=== PATIENT | female | born 1995 | race Caucasian/White ===

== ENCOUNTER 2017-02-27 21:13 | Emergency (ER) | payer OTHER, BC | END 2017-02-27 22:28 | disposition home or self-care (01) | LOC: M ED 21:13 | DX: J31.0 Chronic rhinitis (principal); H61.899 Other specified disorders of external ear, unspecified ear; Z79.3 Long term (current) use of hormonal contraceptives; Z79.899 Other long term (current) drug therapy; Z88.1 Allergy status to other antibiotic agents; Z88.2 Allergy status to sulfonamides | CPT/HCPCS: 99283 ==

== ENCOUNTER → 2018-09-05 | Outpatient (CLI) | payer OTHER ==
[~2018-09-05] MED LIST: AUGM875T28 PO; CLAR5TAB7 PO; ESCI10TA2; MEDR1VL IM
[2018-09-05 10:28] LABS: FREE T4 1.39 NG/DL (0.76-1.46); THYROID STIMULATING HORMONE 2.28 uIU/ML (0.358-3.740)
[2018-09-05 10:29] LABS: PROLACTIN 12.3 NG/ML
== END ==
LOC: M LAB 09:31
PROVIDERS: ATTEND Obstetrics & Gynecology
DX: N91.4 Secondary oligomenorrhea (principal)

== ENCOUNTER → 2019-01-13 | Outpatient (REF) | LOC: M LAB LCGH 12:16 | PROVIDERS: ATTEND Physician Assistant | DX: D22.9 Melanocytic nevi, unspecified (principal) ==

== ENCOUNTER → 2021-03-15 | Outpatient (CLI) | payer OTHER ==
[~2021-03-15] MED LIST changes: +ESCI10TA16; -ESCI10TA2
[2021-03-15 17:21] LABS: HEMATOCRIT 38.8 % (36.0-47.0); HEMOGLOBIN 13.2 g/dl (12.0-15.5); MEAN CORPUSCULAR HEMOGLOBIN 31.4 pg (27.0-33.0); MEAN CORPUSCULAR VOLUME 92.2 fl (80.0-96.0); PLATELET COUNT, AUTOMATED 344 10^3/uL (150-450); RED BLOOD COUNT 4.21 10^6/uL (4.00-5.40); WHITE BLOOD COUNT 9.5 10^3/uL (4.0-10.0)
[2021-03-15 17:42] LABS: ALT/SGPT 21 U/L (12-78); BILIRUBIN,TOTAL 0.3 MG/DL (0.2-1.0); CREATININE FOR GFR 0.55 MG/DL (0.55-1.30); GLOMERULAR FILTRATION RATE > 60.0 (>60); LDH LACTATE DEHYDROGENASE 142 U/L (84-246)
[2021-03-15 17:44] LABS: TOTAL PROTEIN,RANDOM URINE 13.4 MG/DL (0.0-12.0)
[2021-03-15 18:25] LABS: HEPATITIS C VIRUS ABY INDEX < 0.0 INDEX (<0.8)
[2021-03-15 18:26] LABS: HIV 1&2 SCREEN CENTAUR NEGATIVE (NEGATIVE)
[2021-03-15 20:12] LABS: GC DNA AMPLIFICATION NEGATIVE (NEGATIVE)
== END ==
LOC: M PLALAB 13:52
PROVIDERS: ATTEND Advanced Practice Midwife
DX: O26.851 Spotting complicating pregnancy, first trimester (principal)

== ENCOUNTER → 2021-05-26 | Outpatient (CLI) | payer OTHER | LOC: M WHC 14:30 | PROVIDERS: ATTEND Obstetrics & Gynecology | DX: Z36.89 Encounter for other specified antenatal screening (principal); Z3A.20 20 weeks gestation of pregnancy ==

== ENCOUNTER 2021-07-30 09:57 | Outpatient (CLI) | payer OTHER ==
[~2021-07-30] VITALS: Ht 167.6 cm; Wt 87.5 kg
[2021-07-30 10:17] VITALS: BP 106/57
[2021-07-30] MEDS ORDERED: PRENTAB9 PO (10:20)
[2021-07-30] MEDS ORDERED: ECOT81TA5 PO (10:20)
[2021-07-30] MEDS ORDERED: HOME MED LIST COMPLETE! XX SCH (10:25)
[2021-07-30] MEDS ORDERED: ASPI81CH33 PO (10:28)
[2021-07-30] MEDS ORDERED: LACTATED RINGER'S 1000 ML IV ONE (10:45)
[2021-07-30] MEDS ORDERED: LR 1,000 ML IV SCH (11:00)
[2021-07-30 11:24] LABS: HEMATOCRIT 52.6 % (36.0-47.0); HEMOGLOBIN 18.4 g/dl (12.0-15.5); MEAN CORPUSCULAR HEMOGLOBIN 34.3 pg (27.0-33.0); MEAN CORPUSCULAR VOLUME 98.1 fl (80.0-96.0); PLATELET COUNT, AUTOMATED 125 10^3/uL (150-450); RED BLOOD COUNT 5.36 10^6/uL (4.00-5.40); WHITE BLOOD COUNT 4.7 10^3/uL (4.0-10.0)
[2021-07-30 11:28] LABS: APPEARANCE, URINE HAZY (CLEAR); BACTERIA, URINE AUTO 1+ (NEGATIVE); BILIRUBIN, URINE AUTO NEGATIVE (NEGATIVE); BLOOD, URINE BLOOD 1+ (NEGATIVE); COLOR, URINE YELLOW (YELLOW); GLUCOSE, URINE (UA) AUTO NEGATIVE (NEGATIVE); KETONE, URINE AUTO NEGATIVE (NEGATIVE); LEUKOCYTE ESTERASE, URINE AUTO 1+ (NEGATIVE); NITRITE, URINE AUTO NEGATIVE (NEGATIVE); PROTEIN, URINE AUTO NEGATIVE (NEGATIVE); RBC, URINE AUTO 0 /HPF (0-3); SPECIFIC GRAVITY URINE AUTO 1.011 (1.002-1.035); SQUAMOUS EPITHELIAL CELL UR AU 14 /HPF (0-6); UROBILINOGEN, URINE AUTO 0.2 mg/dL (0.0-2.0); WBC, URINE AUTO 4 /HPF (0-3)
[2021-07-30 12:17] LABS: HEMATOCRIT 34.2 % (36.0-47.0); MEAN CORPUSCULAR HEMOGLOBIN 34.3 pg (27.0-33.0); MEAN CORPUSCULAR HGB CONC 33.6 g/dl (32.0-36.5); MEAN CORPUSCULAR VOLUME 102.1 fl (80.0-96.0); PLATELET COUNT, AUTOMATED 219 10^3/uL (150-450); RED BLOOD COUNT 3.35 10^6/uL (4.00-5.40); WHITE BLOOD COUNT 9.7 10^3/uL (4.0-10.0)
[2021-07-30 12:19] LABS: HEMOGLOBIN 11.5 g/dl (12.0-15.5)
[2021-07-30 12:53] VITALS: BP 98/59
[2021-07-30 13:47] VITALS: BP 107/64
== END 2021-07-30 15:20 | disposition home or self-care (01) ==
LOC: M LDO 09:57
PROVIDERS: ATTEND Obstetrics & Gynecology
DX: O46.93 Antepartum hemorrhage, unspecified, third trimester (principal); Z3A.30 30 weeks gestation of pregnancy; O26.893 Other specified pregnancy related conditions, third trimester; N93.0 Postcoital and contact bleeding; Z88.2 Allergy status to sulfonamides

== ENCOUNTER → 2021-09-13 | Outpatient (CLI) | payer OTHER ==
[~2021-09-13] MED LIST changes: +ASPI81CH33 PO; +ECOT81TA5 PO; +PRENTAB9 PO
== END ==
LOC: M WHC 15:14
PROVIDERS: ATTEND Specialist
DX: Z34.83 Encounter for supervision of other normal pregnancy, third trimester (principal); Z3A.36 36 weeks gestation of pregnancy

== ENCOUNTER → 2021-09-13 | Outpatient (REF) | payer OTHER | LOC: M SFHCWAGY 16:54 | PROVIDERS: ATTEND Specialist | DX: Z36.85 Encounter for antenatal screening for Streptococcus B (principal) ==

== ENCOUNTER 2021-09-27 07:30 | Inpatient (IN) | payer OTHER ==
[~2021-09-27] VITALS: Ht 167.6 cm; Wt 96.7 kg
[2021-09-27] VITALS (9 sets, daily range): BP systolic 108–118; BP diastolic 62–73
[2021-09-27] MEDS ORDERED: LACTATED RINGER'S 1000 ML IV STA (13:53)
[2021-09-27] MEDS ORDERED: METHYLERGONOVINE MALEATE 0.2 MG/ML VIAL (J2210) IM PRN (13:55)
[2021-09-27] MEDS ORDERED: OXYTOCIN INJ 10 UNITS/ML VIAL (J2590) IM PRN (13:55)
[2021-09-27] MEDS ORDERED: TRANEXAMIC ACID INJection 1,000 MG in NS 100 ML IV PRN (13:55)
[2021-09-27] MEDS ORDERED: OXYTOCIN DRIP 30 UNITS in IV 1 EA IV PRN ×4 (13:55)
[2021-09-27] MEDS ORDERED: CARBOPROST TROMETHAMINE 250 MCG/ML AMP IM PRN (13:55)
[2021-09-27 14:26] LABS: HEMATOCRIT 38.8 % (36.0-47.0); HEMOGLOBIN 13.4 g/dl (12.0-15.5); MEAN CORPUSCULAR HEMOGLOBIN 33.5 pg (27.0-33.0); MEAN CORPUSCULAR HGB CONC 34.5 g/dl (32.0-36.5); PLATELET COUNT, AUTOMATED 212 10^3/uL (150-450); WHITE BLOOD COUNT 10.5 10^3/uL (4.0-10.0)
[2021-09-27] MEDS ORDERED: AZITHROMYCIN INJ 500 MG, VIAL MATE ADAPTER 1 EACH in NS 250 ML IV ONE (15:00)
[2021-09-27] MEDS ORDERED: ceFAZolin SOD 2 GM in IV 1 EA IV ONE (15:00)
[2021-09-27] MEDS ORDERED: BICITRA 30ML SOLN UDC PO ONE (15:00)
[2021-09-27] MEDS: LR 1,000 ML IV SCH ×2 (15:32→22:25)
[2021-09-27] MEDS ORDERED: OXYTOCIN 30 UNITS IN 0.9% NaCl 500ML IV BAG (J2590) As Ordered ONE ×2 (17:06→18:14)
[2021-09-27] MEDS ORDERED: KETOROLAC 60MG 2ML VIAL As Ordered ONE (17:12)
[2021-09-27] MEDS ORDERED: NALOXONE INJ 0.4MG/1ML VIAL (J2310 PER 1MG) IV PRN ×2 (17:35)
[2021-09-27] MEDS ORDERED: diphenhydrAMINE 50MG/ML VIAL (J1200) IV PRN (17:35)
[2021-09-27] MEDS ORDERED: **NOTE PATIENT COMMENT** MISC XX SCH (17:35)
[2021-09-27] MEDS ORDERED: fentaNYL 100 MCG/2 ML INJECTION IV PRN (17:35)
[2021-09-27] MEDS ORDERED: ONDANSETRON 4MG 2ML VIAL IV PRN ×3 (17:35→18:00)
[2021-09-27] MEDS: SLF 3 ML SYR IV SCH (17:35)
[2021-09-27] MEDS ORDERED: METOCLOPRAMIDE INJ 10MG/2ML VIAL (J2765 PER 1) IV PRN (17:35)
[2021-09-27] MEDS ORDERED: oxyCODONE 5MG TAB PO PRN (17:35)
[2021-09-27] MEDS ORDERED: RHOGAM 300 MCG (1500 IU) INJ (J2790) IM SCH (18:00)
[2021-09-27] MEDS ORDERED: OXYTOCIN DRIP 30 UNITS in IV 1 EA IV SCH (18:00)
[2021-09-27] MEDS ORDERED: DOCUSATE SODIUM 100MG CAPSULE PO PRN (18:00)
[2021-09-27] MEDS ORDERED: MORPHINE 2 MG/ML 1ML VIAL IV PRN (18:00)
[2021-09-27] MEDS ORDERED: PERCOCET 5MG/325MG TAB PO PRN (18:00)
[2021-09-27] MEDS ORDERED: SIMETHICONE 80MG CHEW TAB PO PRN (18:00)
[2021-09-27] MEDS ORDERED: MORPHINE 4 MG/ML 1ML VIAL/SYRINGE IV PRN (18:06)
[2021-09-27] MEDS ORDERED: IBUP80TA PO (18:12)
[2021-09-27] MEDS ORDERED: COLA100C5 PO (18:12)
[2021-09-27] MEDS ORDERED: PERCOCET PO (18:12)
[2021-09-27] MEDS: PERCOCET 5MG/325MG TAB PO PRN (22:03)
[2021-09-27] MEDS: KETOROLAC 30 MG/ML 1ML VIAL IV SCH (23:43)
[2021-09-28] MEDS: SLF 3 ML SYR IV SCH ×2 (01:35→09:00)
[2021-09-28 02:19] VITALS: BP 117/65
[2021-09-28 06:00] VITALS: BP 103/59
[2021-09-28] MEDS: KETOROLAC 30 MG/ML 1ML VIAL IV SCH ×2 (06:00→12:31)
[2021-09-28] MEDS: LR 1,000 ML IV SCH ×3 (07:00→12:32)
[2021-09-28 07:37] LABS: HEMATOCRIT 32.5 % (36.0-47.0); MEAN CORPUSCULAR HEMOGLOBIN 33.9 pg (27.0-33.0); MEAN CORPUSCULAR HGB CONC 34.2 g/dl (32.0-36.5); MEAN CORPUSCULAR VOLUME 99.4 fl (80.0-96.0); PLATELET COUNT, AUTOMATED 167 10^3/uL (150-450); RED BLOOD COUNT 3.27 10^6/uL (4.00-5.40); WHITE BLOOD COUNT 10.1 10^3/uL (4.0-10.0)
[2021-09-28 07:55] LABS: HEMOGLOBIN 11.1 g/dl (12.0-15.5)
[2021-09-28] MEDS: PRENATAL VITAMINS CHEWABLE TABLET PO SCH (09:05)
[2021-09-28 09:37] VITALS: BP 105/59
[2021-09-28 14:02] VITALS: BP 104/63
[2021-09-28 17:59] VITALS: BP 120/72
[2021-09-28] MEDS: IBUPROFEN 800 MG TAB PO SCH (20:02)
[2021-09-28 22:04] VITALS: BP 126/79
[2021-09-29 02:13] VITALS: BP 109/57
[2021-09-29] MEDS: IBUPROFEN 800 MG TAB PO SCH ×2 (04:08→12:52)
[2021-09-29 06:18] VITALS: BP 115/69
[2021-09-29] MEDS: PERCOCET 5MG/325MG TAB PO PRN (07:47)
[2021-09-29] MEDS: PRENATAL VITAMINS CHEWABLE TABLET PO SCH (09:00)
[2021-09-29] MEDS ORDERED: MEASLES,MUMPS,RUBELLA VACCINE INJ (MMR-II) (90707) SC.IMMUN ONE (09:00)
[2021-09-29 10:25] VITALS: BP 113/70
== END 2021-09-29 13:18 | disposition home or self-care (01) | DRG 540 ==
LOC: M LDI 13:49 → M OBS 19:18
PROVIDERS: ADMIT Advanced Practice Midwife; ATTEND Obstetrics & Gynecology
PROC: 10D00Z1 Extraction of Products of Conception, Low, Open Approach (ICD-10-PCS; principal; 2021-09-27 19:05)
DX: O34.211 Maternal care for low transverse scar from previous cesarean delivery (principal); Z3A.38 38 weeks gestation of pregnancy; O75.82 Onset (spontaneous) of labor after 37 completed weeks of gestation but before 39 completed weeks gestation, with delivery by (planned) cesarean section; Z37.0 Single live birth

== ENCOUNTER → 2023-03-29 | Outpatient (REF) | payer OTHER ==
[~2023-03-29] MED LIST changes: +COLA100C5 PO; +IBUP80TA PO; +PERCOCET PO
== END ==
LOC: M SFHCWAGY 17:54
PROVIDERS: ATTEND Obstetrics & Gynecology
DX: Z12.4 Encounter for screening for malignant neoplasm of cervix (principal)

== ENCOUNTER → 2023-12-20 | Outpatient (CLI) | payer MEDICAID | LOC: M PLALAB 10:15 | PROVIDERS: ATTEND Advanced Practice Midwife | DX: O20.9 Hemorrhage in early pregnancy, unspecified (principal) ==

== ENCOUNTER → 2024-04-13 | Outpatient (REF) | payer MEDICAID, OTHER | LOC: M SFHCDERM 17:31 | PROVIDERS: ATTEND Nurse Practitioner Family | DX: D22.4 Melanocytic nevi of scalp and neck (principal) ==

== ENCOUNTER → 2024-04-28 | Outpatient (CLI) | payer OTHER ==
[2024-04-28 10:52] LABS: HEMATOCRIT 40.4 % (36.0-47.0); MEAN CORPUSCULAR HEMOGLOBIN 32.1 pg (27.0-33.0); MEAN CORPUSCULAR HGB CONC 34.7 g/dl (32.0-36.5); MEAN CORPUSCULAR VOLUME 92.7 fl (80.0-96.0); PLATELET COUNT, AUTOMATED 294 10^3/uL (150-450); RED BLOOD COUNT 4.36 10^6/uL (4.00-5.40); WHITE BLOOD COUNT 9.1 10^3/uL (4.0-10.0)
== END ==
LOC: M PLALAB 08:58
PROVIDERS: ATTEND Obstetrics & Gynecology
DX: N92.0 Excessive and frequent menstruation with regular cycle (principal)

== ENCOUNTER → 2024-07-02 | Outpatient (REF) | payer OTHER ==
[2024-07-02 14:24] LABS: Trichomonas vaginalis (AMP) NOT DETECTED (NEGATIVE)
[2024-07-02 14:48] LABS: GC DNA AMPLIFICATION NEGATIVE (NEGATIVE)
== END ==
LOC: M SFHCWAGY 12:48
PROVIDERS: ATTEND Obstetrics & Gynecology
DX: O34.211 Maternal care for low transverse scar from previous cesarean delivery (principal); Z3A.00 Weeks of gestation of pregnancy not specified

== ENCOUNTER → 2024-07-30 | Outpatient (CLI) | payer OTHER | LOC: M PLALAB 08:13 | PROVIDERS: ATTEND Nurse Practitioner Family | DX: Z34.80 Encounter for supervision of other normal pregnancy, unspecified trimester (principal) ==

== ENCOUNTER → 2024-07-30 | Outpatient (CLI) | payer OTHER ==
[2024-07-30 10:12] LABS: HEMOGLOBIN 12.7 g/dl (12.0-15.5); MEAN CORPUSCULAR HEMOGLOBIN 32.6 pg (27.0-33.0); MEAN CORPUSCULAR HGB CONC 34.3 g/dl (32.0-36.5); MEAN CORPUSCULAR VOLUME 95.1 fl (80.0-96.0); PLATELET COUNT, AUTOMATED 317 10^3/uL (150-450); RED BLOOD COUNT 3.89 10^6/uL (4.00-5.40)
[2024-07-30 13:54] LABS: HIV 1&2 SCREEN NEGATIVE (NEGATIVE)
[2024-07-30 14:02] LABS: HEPATITIS C VIRUS ABY INDEX 0.03 INDEX (<0.8)
== END ==
LOC: M PLALAB 08:17
PROVIDERS: ATTEND Obstetrics & Gynecology
DX: O34.211 Maternal care for low transverse scar from previous cesarean delivery (principal)

== ENCOUNTER → 2024-09-18 | Outpatient (CLI) | payer OTHER | LOC: M WHC 07:13 | PROVIDERS: ATTEND Advanced Practice Midwife | DX: Z34.82 Encounter for supervision of other normal pregnancy, second trimester (principal) ==

== ENCOUNTER → 2024-10-16 | Outpatient (CLI) | payer OTHER | LOC: M WHC 07:59 | PROVIDERS: ATTEND Nurse Practitioner Family | DX: Z34.80 Encounter for supervision of other normal pregnancy, unspecified trimester (principal); Z3A.22 22 weeks gestation of pregnancy ==

== ENCOUNTER → 2024-12-23 | Outpatient (CLI) | payer OTHER | LOC: M WHC 13:45 | PROVIDERS: ATTEND Nurse Practitioner Family | DX: O26.643 Intrahepatic cholestasis of pregnancy, third trimester (principal); Z3A.32 32 weeks gestation of pregnancy ==

== ENCOUNTER → 2024-12-29 | Outpatient (CLI) | payer OTHER ==
[2024-12-29 11:33] LABS: ALT/SGPT 57 U/L (7.0-40); AST/SGOT 101 U/L (<34); CALCIUM LEVEL 9.6 MG/DL (8.5-10.1); CARBON DIOXIDE LEVEL 23 MMOL/L (20-31); CHLORIDE LEVEL 105 MMOL/L (98-107); CREATININE FOR GFR 0.48 MG/DL (0.55-1.30); GLOMERULAR FILTRATION RATE > 90.0 (>60); POTASSIUM SERUM 4.1 MMOL/L (3.5-5.1); SODIUM LEVEL 140 MMOL/L (136-145)
== END ==
LOC: M PLALAB 09:09
PROVIDERS: ATTEND Nurse Practitioner Family
DX: L29.9 Pruritus, unspecified (principal)

== ENCOUNTER → 2024-12-30 | Outpatient (CLI) | payer OTHER | LOC: M WHC 12:01 | PROVIDERS: ATTEND Nurse Practitioner Family | DX: O26.643 Intrahepatic cholestasis of pregnancy, third trimester (principal) ==

== ENCOUNTER 2025-01-01 11:49 | Emergency (ER) | payer OTHER | END 2025-01-01 14:41 | disposition admitted as inpatient to this hospital (09) | LOC: M ED 11:49 | DX: Z53.21 Procedure and treatment not carried out due to patient leaving prior to being seen by health care provider (principal) ==

== ENCOUNTER 2025-01-01 11:54 | Outpatient (CLI) | payer OTHER ==
[~2025-01-01] VITALS: Ht 167.6 cm; Wt 101.3 kg
[2025-01-01 12:11] VITALS: BP 108/66
[2025-01-01] MEDS ORDERED: HOME MED LIST COMPLETE! XX SCH (12:15)
[2025-01-01 14:08] LABS: PLATELET COUNT, AUTOMATED 249 10^3/uL (150-450)
[2025-01-01 14:34] LABS: ALT/SGPT 49 U/L (7.0-40); AST/SGOT 89 U/L (<34); CALCIUM LEVEL 9.0 MG/DL (8.5-10.1); CARBON DIOXIDE LEVEL 21 MMOL/L (20-31); CHLORIDE LEVEL 105 MMOL/L (98-107); CREATININE FOR GFR 0.41 MG/DL (0.55-1.30); GLOMERULAR FILTRATION RATE > 90.0 (>60); POTASSIUM SERUM 3.9 MMOL/L (3.5-5.1); SODIUM LEVEL 137 MMOL/L (136-145)
== END 2025-01-01 14:40 | disposition home or self-care (01) ==
LOC: M LDO 11:54
PROVIDERS: ATTEND Advanced Practice Midwife
DX: O26.643 Intrahepatic cholestasis of pregnancy, third trimester (principal); O09.293 Supervision of pregnancy with other poor reproductive or obstetric history, third trimester; O34.211 Maternal care for low transverse scar from previous cesarean delivery; Z3A.33 33 weeks gestation of pregnancy
CPT/HCPCS: 36415; 59025; 76705; 80053; 85027; G0463

== ENCOUNTER → 2025-01-06 | Outpatient (CLI) | payer OTHER | LOC: M WHC 14:05 | PROVIDERS: ATTEND Nurse Practitioner Family | DX: O26.643 Intrahepatic cholestasis of pregnancy, third trimester (principal) ==

== ENCOUNTER 2025-01-13 14:55 | Outpatient (CLI) | payer OTHER ==
[~2025-01-13] VITALS: Ht 167.6 cm; Wt 103.1 kg
[2025-01-13] MEDS ORDERED: FAMO20TA PO (15:14)
[2025-01-13 15:15] VITALS: BP 121/79
[2025-01-13 15:27] VITALS: BP 122/82
[2025-01-13 15:36] VITALS: BP 121/82
[2025-01-13 15:53] LABS: PLATELET COUNT, AUTOMATED 265 10^3/uL (150-450)
[2025-01-13] MEDS: METOCLOPRAMIDE 10 MG TAB PO ONE (16:17)
[2025-01-13 16:25] LABS: LDH LACTATE DEHYDROGENASE 162 U/L (120-246)
[2025-01-13 16:26] LABS: ALT/SGPT 62 U/L (7.0-40); AST/SGOT 126 U/L (<34); CREATININE FOR GFR 0.51 MG/DL (0.55-1.30); GLOMERULAR FILTRATION RATE > 90.0 (>60)
[2025-01-13 16:41] LABS: TOTAL PROTEIN,RANDOM URINE 21.9 MG/DL (0.0-14.0)
== END 2025-01-13 18:15 | disposition home or self-care (01) ==
LOC: M LDO 14:55
PROVIDERS: ATTEND Advanced Practice Midwife
DX: O26.893 Other specified pregnancy related conditions, third trimester (principal); O26.643 Intrahepatic cholestasis of pregnancy, third trimester; O34.211 Maternal care for low transverse scar from previous cesarean delivery; O09.293 Supervision of pregnancy with other poor reproductive or obstetric history, third trimester; R03.0 Elevated blood-pressure reading, without diagnosis of hypertension; Z86.19 Personal history of other infectious and parasitic diseases; Z3A.35 35 weeks gestation of pregnancy
CPT/HCPCS: 36415; 59025; 76705; 82150; 82247; 82570; 83615; 83690; 84156; 84450; 84460; 84550; 85027; G0463

== ENCOUNTER → 2025-01-15 | Outpatient (REF) | payer OTHER ==
[~2025-01-15] MED LIST changes: +FAMO20TA PO
== END ==
LOC: M PLALAB 14:07
PROVIDERS: ATTEND Specialist
DX: O26.643 Intrahepatic cholestasis of pregnancy, third trimester (principal); Z36.85 Encounter for antenatal screening for Streptococcus B

== ENCOUNTER 2025-01-17 10:10 | Outpatient (CLI) | payer OTHER ==
[2025-01-17] VITALS (7 sets, daily range): BP systolic 117–129; BP diastolic 68–81; O2SAT 97
[~2025-01-17] VITALS: Ht 167.6 cm; Wt 102.1 kg
[2025-01-17] MEDS ORDERED: HOME MED LIST COMPLETE! XX SCH (10:20)
[2025-01-17] MEDS ORDERED: NS (Normal Saline) 0.9% 1,000 ML IV ONE (11:25)
[2025-01-17] MEDS: LR 1,000 ML IV ONE (11:37)
[2025-01-17] MEDS: LOPERAMIDE 2 MG CAPLET PO ONE (11:38)
[2025-01-17] MEDS: BETAMETHASONE SOLUSPAN 6 MG/ML 5 ML VIAL IM SCH (11:41)
[2025-01-17] MEDS: NIFEdipine 10 MG CAP PO SCH (12:24)
[2025-01-17] MEDS: ACETAMINOPHEN 325 MG TAB PO ONE (13:11)
[2025-01-17] MEDS: LR 1,000 ML IV SCH (15:13)
[2025-01-18 02:26] VITALS: BP 104/63
[2025-01-18 06:07] VITALS: BP 120/80
[2025-01-18 06:09] VITALS: BP 120/80
[2025-01-18 08:09] VITALS: BP 123/77
[2025-01-18 10:08] VITALS: BP 123/73
[2025-01-18 11:47] VITALS: BP 119/73
== END 2025-01-18 12:00 | disposition home or self-care (01) ==
LOC: M LDO 10:10
PROVIDERS: ATTEND Student in an Organized Health Care Education/Training Program
DX: O60.03 Preterm labor without delivery, third trimester (principal); O26.643 Intrahepatic cholestasis of pregnancy, third trimester; O34.211 Maternal care for low transverse scar from previous cesarean delivery; O09.293 Supervision of pregnancy with other poor reproductive or obstetric history, third trimester; Z3A.35 35 weeks gestation of pregnancy
CPT/HCPCS: 59025; 96372; G0463; J0702

== ENCOUNTER → 2025-03-02 | Outpatient (REF) | payer OTHER | LOC: M PLALAB 09:16 | PROVIDERS: ATTEND Obstetrics & Gynecology | DX: Z53.9 Procedure and treatment not carried out, unspecified reason (principal); R30.0 Dysuria ==